=== PATIENT | female | born 1955 | race Caucasian/White ===

== ENCOUNTER 2017-03-23 11:50 | Day surgery (SDC) | payer OTHER ==
[~2017-03-23] VITALS: Ht 160 cm; Wt 68.5 kg
[~2017-03-23 11:50] MED LIST: BUTALB-ACETAMI1 EACH PO; ESOM20 PO; ESOMEPRAZOLE MA40 MG PO; ONDA8 PO
[2017-03-23] MEDS ORDERED: Excedrin Extra1 EACH (12:19)
[2017-03-23] MEDS ORDERED: Esgic Tablet1 EACH (12:19)
[2018-01-04] MEDS ORDERED: ATOR40TA PO (14:19)
[2018-01-04] MEDS ORDERED: TRAZ100 PO (14:19)
[2018-01-04] MEDS ORDERED: ESOM20 PO (14:20)
[2018-01-04] MEDS ORDERED: BUDE6HFA INH (14:21)
[2018-01-04] MEDS ORDERED: ESCI20 PO (14:21)
[2018-01-04] MEDS ORDERED: Excedrin Extra1 EACH PO (16:57)
[2018-01-04] MEDS ORDERED: ALBU2.5V5 INH (16:59)
[2018-01-04] MEDS ORDERED: TIZANIDINE HCL4 MG PO (17:00)
[2018-01-04] MEDS ORDERED: ABAT250V (17:01)
== END 2017-03-23 13:25 | disposition home or self-care (01) ==
LOC: ORSCSDS 11:50
PROVIDERS: Anesthesiology
PROC: 3E0R33Z Introduction of Anti-inflammatory into Spinal Canal, Percutaneous Approach (ICD-10-PCS; principal; 2017-03-23 12:30)
DX: M50.122 Cervical disc disorder at C5-C6 level with radiculopathy (principal); M47.892 Other spondylosis, cervical region; I10 Essential (primary) hypertension; J44.9 Chronic obstructive pulmonary disease, unspecified; K21.9 Gastro-esophageal reflux disease without esophagitis; I50.9 Heart failure, unspecified; Z79.82 Long term (current) use of aspirin; Z79.899 Other long term (current) drug therapy; Z87.891 Personal history of nicotine dependence
CPT/HCPCS: J1040; J2250; J3010; J7040

== ENCOUNTER 2017-05-15 18:04 | Emergency (ER) | payer OTHER ==
[~2017-05-15] VITALS: Ht 160 cm; Wt 68.0 kg
[~2017-05-15 18:04] MED LIST changes: +Esgic Tablet1 EACH; +Excedrin Extra1 EACH
[2017-05-15] MEDS ORDERED: TRAM50 PO (18:29)
[2017-05-15] MEDS ORDERED: Cyclobenzaprine5 MG PO (18:30)
== END 2017-05-15 19:23 | disposition home or self-care (01) ==
LOC: ER 18:04
DX: M25.532 Pain in left wrist (principal); Z88.8 Allergy status to other drugs, medicaments and biological substances; Z91.013 Allergy to seafood; Z91.09 Other allergy status, other than to drugs and biological substances; Z88.5 Allergy status to narcotic agent; Z91.030 Bee allergy status; Z87.891 Personal history of nicotine dependence
CPT/HCPCS: 29125; 73110; 99283

== ENCOUNTER 2017-09-16 11:19 | Emergency (ER) | payer OTHER ==
[~2017-09-16] VITALS: Ht 160 cm; Wt 72.6 kg
[~2017-09-16 11:19] MED LIST changes: +Cyclobenzaprine5 MG PO; +TRAM50 PO
[2017-09-16] MEDS ORDERED: ASPI325 PO (11:36)
[2017-09-16 12:47] LABS: BASOPHILS ABSOLUTE AUTO 0.04 K/mm3 (0.00-0.23); BASOPHILS PERCENT AUTO 1 % (0-2); EOSINOPHILS ABSOLUTE AUTO 0.06 K/mm3 (0.00-0.68); EOSINOPHILS PERCENT AUTO 1 % (0-6); Hematocrit 39.9 % (33.0-51.0); Hemoglobin 13.1 g/dL (11.5-16.0); IMMATURE GRAN ABSOLUTE AUTO 0.01 K/mm3 (0.00-0.10); IMMATURE GRAN PERCENT AUTO 0 % (0-1); LYMPHOCYTES ABSOLUTE AUTO 1.32 K/mm3 (0.84-5.20); LYMPHOCYTES PERCENT AUTO 21 % (21-46); MONOCYTES ABSOLUTE AUTO 0.41 K/mm3 (0.16-1.47); MONOCYTES PERCENT AUTO 7 % (4-13); Mean Corpuscular HGB 28.5 pg (26.0-34.0); Mean Corpuscular HGB Conc 32.8 g/dL (31.5-36.5); Mean Corpuscular Volume 87 fL (80-100); Mean Platelet Volume 10.3 fL (9.1-12.4); NEUTROPHILS ABSOLUTE AUTO 4.34 K/mm3 (1.96-9.15); NEUTROPHILS PERCENT AUTO 70 % (41-73); Platelet Count 243 K/mm3 (150-400); RDW Standard Deviation 40.8 fL (35.1-46.3); White Blood Cell Count 6.18 K/mm3 (4.00-11.30)
[2017-09-16 12:54] LABS: Anion Gap 9 mmol/L (6-16); Blood Urea Nitrogen 14 mg/dL (8-24); Bun/Creatinine Ratio 21.8 (12.0-20.0); CO2, Blood 28 mmol/L (21-32); Calcium, Blood 9.2 mg/dL (8.5-10.1); Chloride, Blood 107 mmol/L (98-108); Creatinine, Blood 0.64 mg/dL (0.40-1.00); Glomerular Filtration Rate >60 (60-); Glucose, Blood 102 mg/dL (70-99); Sodium, Blood 144 mmol/L (136-145)
== END 2017-09-16 16:09 | disposition home or self-care (01) ==
LOC: ER 11:19
PROVIDERS: Emergency Medicine
DX: R51 Headache (principal); Z88.8 Allergy status to other drugs, medicaments and biological substances; Z91.030 Bee allergy status; Z91.018 Allergy to other foods; Z91.048 Other nonmedicinal substance allergy status; Z88.5 Allergy status to narcotic agent; Z79.82 Long term (current) use of aspirin; Z87.891 Personal history of nicotine dependence
CPT/HCPCS: 70450; 80048; 85025; 96365; 96366; 96375; 99284-25; J0780; J1100; J1885; J2550; J3010; J3475; J7030

== ENCOUNTER 2017-10-12 10:46 | Day surgery (SDC) | payer OTHER ==
[~2017-10-12] VITALS: Ht 160 cm; Wt 73.7 kg
[~2017-10-12 10:46] MED LIST changes: +ASPI325 PO
[2017-10-12] MEDS ORDERED: Excedrin Extra1 EACH (11:07)
== END 2017-10-12 11:54 | disposition home or self-care (01) ==
LOC: ORSCSDS 10:46
PROVIDERS: Anesthesiology
PROC: 3E0R33Z Introduction of Anti-inflammatory into Spinal Canal, Percutaneous Approach (ICD-10-PCS; principal; 2017-10-12 12:00)
DX: M50.122 Cervical disc disorder at C5-C6 level with radiculopathy (principal); M47.892 Other spondylosis, cervical region; I10 Essential (primary) hypertension; F41.8 Other specified anxiety disorders; F31.9 Bipolar disorder, unspecified; J44.9 Chronic obstructive pulmonary disease, unspecified; K21.9 Gastro-esophageal reflux disease without esophagitis; Z87.891 Personal history of nicotine dependence; Z79.82 Long term (current) use of aspirin; Z79.899 Other long term (current) drug therapy
CPT/HCPCS: J1040; J2250; J3010; J7120

== ENCOUNTER 2018-05-20 00:11 | Emergency (ER) | payer OTHER ==
[~2018-05-20] VITALS: Ht 160 cm; Wt 86.2 kg
[~2018-05-20 00:11] MED LIST changes: +ABAT250V; +ALBU2.5V5 INH; +ATOR40TA PO; +BUDE6HFA INH; +ESCI20 PO; +Excedrin Extra1 EACH PO; +TIZANIDINE HCL4 MG PO; +TRAZ100 PO
== END 2018-05-20 01:44 | disposition left against medical advice (07) ==
LOC: ER 00:11
DX: Z53.21 Procedure and treatment not carried out due to patient leaving prior to being seen by health care provider (principal)